=== PATIENT | male | born 1980 | race African-American/Black ===

== ENCOUNTER 2024-01-08 09:54 | Emergency (ER) | payer OTHER ==
[2024-01-08 11:00] VITALS: BP 142/91; PULSE 96
== END 2024-01-08 12:02 | disposition home or self-care (01) ==
LOC: DL.ED 09:54
DX: S89.91XA Unspecified injury of right lower leg, initial encounter (principal); M17.11 Unilateral primary osteoarthritis, right knee; X58.XXXA Exposure to other specified factors, initial encounter
CPT/HCPCS: 73562-RT; 99283